=== PATIENT | female | born 1980 | race Caucasian/White ===

== ENCOUNTER 2017-08-04 14:00 | Observation (INO) | payer SELFPAY ==
[~2017-08-04 14:00] MED LIST: ISOVUE-370 76%-LOCM 1 ML ONE; Iopamidol 370 76% 50 ML VIAL FS ONE
[2017-08-04] MEDS ORDERED: Ondansetron ODT 4 MG TAB ONE ×2 (14:32→18:26)
[2017-08-04 14:40] LABS: #Lymphocytes 0.6 thou/uL (1.20-3.40); #Monocytes 0.3 thou/uL (0.11-0.59); #Neutrophils 4.6 thou/uL (1.40-6.50); %Basophils 0.5 % (0.0-1.0); %Eosinophils 0.1 % (0.0-10.0); %Lymphocytes 11.2 % (21.0-51.0); %Monocytes 5.5 % (0.0-10.0); %Neutrophils 82.6 % (42.0-75.0); Hemoglobin 12.1 g/dL (12.0-16.0); Mean Corpuscular HGB CONC 34.3 g/dL (32.0-36.0); Mean Corpuscular Volume 99.2 fl (81.0-99.0); Mean Platelet Volume 7.6 fL (7.4-10.4); Platelet Count 186 thou/uL (130-400); RBC Distribution Width 14.5 % (11.5-14.5); Red Blood Cell (RBC) Count 3.58 mill/uL (4.20-5.40); White Blood Cell (WBC) Count 5.6 thou/uL (4.8-10.8)
[2017-08-04 14:52] LABS: Bilirubin Negative (Negative); Blood, Urine Negative (Negative); Clarity CLOUDY (Clear); Glucose, Urine (Dipstick) Negative (Negative); Leukocyte Small (Negative); Nitrite Positive (Negative); Protein, Urine (Dipstick) Negative (Neg-Trace); Specific Gravity, Urine 1.012 (1.002-1.036); Urobilinogen 0.2 mg/dL (0.2-1.0); pH, Urine 7.5 (5.0-9.0)
[2017-08-04 14:53] LABS: Pregnancy Test - Urine (BHCG) Negative (Negative); Pregu Control Background? CLEAR/WHITE (CLR/WHITE); Pregu Control Bar Appear? YES (CONTROL BAR); Specific Gravity 1.012 (1.002-1.036)
[2017-08-04 14:57] LABS: ALT (SGPT) 100 U/L (8-55); AST (SGOT) 210 U/L (5-34); Albumin 4.4 g/dL (3.5-5.0); Alkaline Phosphatase 289 U/L (40-150); Anion Gap 15 mmol/L (10-20); BUN (Urea Nitrogen) 6 mg/dL (7.0-18.7); Bilirubin, Total 0.5 mg/dL (0.2-1.2); Calc. Creatinine Clearance 0 mL/min (70-130); Calcium 10.1 mg/dL (7.8-10.44); Carbon Dioxide 28 mmol/L (22-29); Chloride 98 mmol/L (98-107); Estimated GFR-MDRD 81; Globulin 3.5 g/dL (2.4-3.5); Glucose 116 mg/dL (70-105); Potassium 3.7 mmol/L (3.5-5.1); Protein, Total 7.9 g/dL (6.0-8.3); Sodium 137 mmol/L (136-145)
[2017-08-04 14:57] LABS: Bacteria/HPF 4+ HPF (None Seen); Hyaline Casts/LPF 0-3 HYALINE CAST LPF (0-3 Hyaline); Pathc Cast-AUWi Flag 0.29 (0-2.49); RBC/HPF 0-3 HPF (0-3)
[2017-08-04] MEDS ORDERED: Piperacillin/Tazobactam 3.375 GM VIAL ONE (16:05)
[2017-08-04] MEDS ORDERED: Morphine 4 MG/ML VIAL ONE (16:05)
[2017-08-04 16:32] LABS: HBSAg Index 0.21 S/CO (0-0.99); Hep B Surf Ag Non-Reactive S/CO (NonReactive)
[2017-08-04 16:33] LABS: Hep C IgG Ab Non-Reactive (NonReactive); Hep C Index 0.17 S/CO (0-0.79)
--- NOTE | 2017-08-04 17:29 | ULT ---
RIGHT UPPER QUADRANT ULTRASOUND: HISTORY: A 37-year-old male with abdominal pain and nausea, vomiting, and diarrhea. FINDINGS: The liver shows some increased echogenicity, consistent with fatty change. No evidence of gallstones , wall thickening, edema, or pericholecystic fluid. The common bile duct is minimally dilated, up to 0.8 cm, without significant intrahepatic ductal dilatation. The pancreas is mostly obscured. The r ight kidney is unremarkable. IMPRESSION: Minimally dilated common bile duct, up to 0.8 cm, without intrahepatic ductal dilatation. No evidenc e of gallstones. Fatty liver. POS: [facility]
[2017-08-04] MEDS ORDERED: Lactated Ringer's 1,000 ML IV SCH (20:00)
--- NOTE | 2017-08-04 20:29 | CT ---
ABDOMEN AND PELVIS CT SCAN WITH IV CONTRAST: HISTORY: A 37-year-old female with a history of abdominal pain and common bile duct dilatation. Nausea, vomit ing, and diarrhea. FINDINGS: The lung bases are clear. Fatty changes in the liver. The gallbladder appears unremarkable. The co mmon bile duct is mildly dilated at 0.8 cm but no intrahepatic ductal dilatation. The pancreas appea rs normal, as does the spleen and adrenal glands. No renal calculus or acute obstruction. Normal appearing appendix. There are some minimally dilated loops of small bowel in the anterior upper abd omen, probably jejunum, nonspecific, possibly related to some focal ileus or mild low grade partial s mall bowel obstruction. There is some focal colonic wall thickening in the upper right colon, extend ing into the hepatic flexure, with a normal appearing cecum and transverse colon. This is concerning for nonspecific focal colitis. Unremarkable uterus and adnexa. Pedicle screws stabilize L5-S1. IMPRESSION: 1. Focal colonic wall thickening involving the upper right colon, extending to the hepatic flexure, evidence for nonspecific focal colitis. 2. Several loops of minimally abnormally dilated small bowel in the anterior upper abdomen, probable representing jejunum or proximal small bowel, nonspecific, possibly some focal ileus or mild low gra de partial small bowel obstruction. 3. Fatty changes in the liver. 4. Minimally dilated common bile duct without intrahepatic ductal dilatation. 5. No other significant acute process. POS: [facility]
[2017-08-04] MEDS ORDERED: Morphine 4 MG/ML VIAL SLOW IVP PRN (21:07)
[2017-08-04] MEDS: Ondansetron ODT 8 MG TAB PO PRN (21:34)
[2017-08-04] MEDS: Lactated Ringer's 1,000 ML IV SCH (23:57)
[2017-08-04] MEDS: Acetaminophen 1,000 MG in Premix Bag 1 BAG IVPB SCH (23:59)
[2017-08-04] MEDS: Ketorolac Tromethamine 30 MG/ML VIAL IVP SCH (23:59)
[2017-08-05 02:04] VITALS: BMI 27.2
[2017-08-05] MEDS: Ondansetron ODT 8 MG TAB PO PRN ×4 (02:41→20:29)
[2017-08-05] MEDS: Acetaminophen 1,000 MG in Premix Bag 1 BAG IVPB SCH ×3 (05:28→18:26)
[2017-08-05] MEDS: Ketorolac Tromethamine 30 MG/ML VIAL IVP SCH ×2 (05:28→12:22)
[2017-08-05] MEDS: Lactated Ringer's 1,000 ML IV SCH ×2 (05:28→18:26)
[2017-08-05] MEDS: Pantoprazole 40 MG VIAL IVP SCH ×2 (08:39→20:15)
--- NOTE | 2017-08-05 09:09 | HP ---
HISTORY OF PRESENT ILLNESS: Esha Hanson is a 37-year-old female who has recently moved [facility] from [place] and prior to that was out of state. The patient has had problems with narcotic use and has been on methadone in the past 6 months. Her goal is to be weaned off of methadone. She has recently been seen by a chronic pain management physician on [facility]. [place] cannot remember his name. She is on methadone wafers routinely. The patient has gained 100 pounds in the last year, she thinks related to the methadone wafers. She hopes again to be off the methado ne soon. The patient presents with nausea, vomiting, diarrhea, abdominal pain, right abdomen, right upper quadrant for the last week. She developed severe dehydration and the shakes and presented to [facility] emergency room. She was evaluated there with an ultrasound of the gallbladder as she is slightly tender in her right upper quadrant. This revealed a common bile duct 8 mm, normal gallbladder withou t stones. Liver function tests were normal. The patient had a fatty liver. There was no intrahepat ic ductal dilatation. It was communicated to me by the ER physician, Dr. Ardon that the patient had choledocholithiasis, although her liver function tests were normal. Based on that discussion she un derwent a CAT scan of the abdomen and pelvis revealing a normal gallbladder, fatty liver, a thickened right colon and transverse colon, several loops of minimally dilated small bowel loops in the upper abdomen. No other acute process. The patient has had problems with intermittent bloating, belching, right upper quadrant pain and a HI DA scan ejection fraction is ordered this morning and pending. The patient has had past history of peptic ulcer disease related to NSAIDs and has had upper endoscop ies and had been told to avoid NSAIDs. The patient has had problems with abdominal pain. She has had colonoscopies in the past, probably last 10 years ago. She reports that as a baseline she has 1-3 loose stools a day alternating with constipation. She believes a lot of her weight gain and GI problems are related to her methadone use . She has recently moved here under the employment of a [employer] company. ALLERGIES: None. TOBACCO: 1/2 pack per day, none the last 2 weeks. ALCOHOL: Occasionally, rarely. PAST SURGICAL HISTORY: Two lumbar surgeries resulting in a fusion L5-S1. Pilonidal cyst resection. Laparoscopy for endometriosis. PAST MEDICAL HISTORY: History of GI bleed related to NSAIDs. History of methadone use of the [facility] ent for her narcotic use related to her prior lumbar surgery and pilonidal cyst resection. As stated above, she has gained 100 pounds over the last year and is concerned about this. She would like to quit smoking. Would like to lose weight. ALLERGIES: LATEX, NATURAL RUBBER. REVIEW OF SYSTEMS: [place] otherwise noncontributory. PHYSICAL EXAMINATION: VITAL SIGNS: Height 5 foot 7, 174 pounds, 27 BMI, 97.8 degrees, 56, 18, 137/69. HEENT: Unremarkable. Sclerae are nonicteric. LUNGS: Clear to auscultation. CARDIAC: Regular rate and rhythm without murmur or gallop. ABDOMEN: Slightly tender in right upper quadrant, right lateral abdomen and upper abdomen with mild voluntary guarding, but no peritoneal signs. SKIN: Nonjaundiced. EXTREMITIES: Unremarkable. No ankle edema. NEUROLOGIC: Intact. No focal deficits. LABORATORY: White count 5, hemoglobin 12, sodium 137, potassium 3.7, BUN 6, creatinine 0.79. Liver function tests normal except for AST and ALT 210/100 respectively, alkaline phosphatase 289. ASSESSMENT AND PLAN: 1. Abdominal pain. I doubt that she has any significant acute biliary disease, but due to her past history of epigastric right upper quadrant pain, postprandial bloating and past history of liver func tion test elevation intermittently, we will obtain a HIDA scan with ejection fraction. 2. Chronic gastrointestinal complaints, she thinks may be related to the methadone. We will obtain Gastroenterology consultation. She may need upper and lower endoscopy. Her upper abdominal pain cou ld be related to colitis or acute gastroenteritis or peptic ulcer disease. We will begin proton-pump inhibitors, avoid oral NSAIDs and await GI consultation. 3. Past history of liver function test elevations intermittently. She states this was checked in [place], was elevated, rechecked and it was improved and now her AST, ALT and alkaline phosphatase are elevated. Hepatitis serology is pending. Nonreactive hepatitis B surface antigen, nonreactive hepa titis C antibody pending hepatitis A IgM antibody and hepatitis B core IgM antibody. 4. Chronic methadone use.
[2017-08-05] MEDS ORDERED: Lorazepam 2 MG/ML VIAL SLOW IVP SCH (10:15)
--- NOTE | 2017-08-05 11:00 | ADD-HP ---
ADDENDUM ASSESSMENT: Dehydration. Urine bacteria 4+, nitrite positive, urine test negative. Speci fic gravity urine 10-12 on admission. She has a urinary tract infection. PLAN: 1. Intravenous antibiotics. 2. Dehydration, improved with hydration, her shakiness has improved.
--- NOTE | 2017-08-05 13:42 | NM ---
HEPATOBILIARY STUDY: Date: 08/05/17 HISTORY: Choledocholithiasis. RADIOPHARMACEUTICAL: 4.9 mCi technetium-99m mebrofenin, IV. MEDICATIONS: 1.6 mcg CCK analog, IV infused over 30 minutes. FINDINGS: There is prompt uptake and excretion of radiotracer by the liver. Gallbladder activity is faintly vis ualized at 6 minutes with increasing activity in the gallbladder imaging up to 60 minutes. Bowel acti vity is visualized by 56 minutes. After 60 minutes of imaging, CCK analog was infused intravenously o natalia 30 minutes. A gallbladder ejection fraction of 90% was obtained, which is within normal limits. IMPRESSION: 1. No evidence of a cystic or common duct obstruction. 2. Normal gallbladder ejection fraction. POS: [facility]
[2017-08-05] MEDS ORDERED: GoLYTELY 4,000 ml Bottle PO SCH (15:45)
[2017-08-05] MEDS ORDERED: hydrOXYzine 25 MG TAB PO PRN (17:18)
[2017-08-06] MEDS: Lactated Ringer's 1,000 ML IV SCH ×2 (00:19→11:20)
[2017-08-06] MEDS: Acetaminophen 1,000 MG in Premix Bag 1 BAG IVPB SCH (00:19)
--- NOTE | 2017-08-06 00:48 | CON ---
DATE OF CONSULTATION: 08/05/2017 GASTROENTEROLOGY CONSULTATION CHIEF COMPLAINT: Abdominal pain, diarrhea. HISTORY OF PRESENT ILLNESS: Ms. Hanson is a 37-year-old woman who has had worsening flare of right u pper quadrant, sharp, stabbing pain and epigastric burning pain over the last 1 to 2 weeks. The pain radiates through to her back and has been worse after fatty foods. She has had a decrease in her ap petite associated with this. She has been having diarrhea with up to 12 watery nonbloody stools per day. She has had some shaking and anxiety and headaches. She reports bruising easily. These sympto ms have been going on since March. She has been on methadone to try to wean off of other chronic opioid addiction. In 2006, she had an upper GI bleed with gastric ulcer. This was attributed to NSA ID then. She still takes NSAIDs around 3 times per week for headaches. She had a colonoscopy in , which was reportedly normal. She has gained 100 pounds over the last year. PAST MEDICAL HISTORY: Hypertension, hyperlipidemia, peptic ulcer disease. PAST SURGICAL HISTORY: L4-S1 fusion, pilonidal cyst surgery, laparoscopic endometriosis surgery. FAMILY HISTORY: Negative for GI malignancy. Her father had cirrhosis secondary to alcohol. SOCIAL HISTORY: She smokes a pack per day. She reports alcohol, a couple of drinks on the weekends and one during the week recently, but she has gone through periods where she had heavy binge drinking for shorter periods. She has a history of cocaine and OxyContin abuse, which she quit 2 years ago. ALLERGIES: LATEX. MEDICATIONS: Prior to admission, methadone, lisinopril with hydrochlorothiazide, Restoril. REVIEW OF SYSTEMS: Negative x10 systems reviewed except as stated in the history of present illness. PHYSICAL EXAMINATION: VITAL SIGNS: Temperature 99.2, pulse 74, blood pressure 146/80. GENERAL: She is in no acute distress, alert and oriented x3. HEENT: Eyes have no scleral icterus. Oropharynx is clear, without lesions. NECK: No cervical or supraclavicular lymphadenopathy. LUNGS: Clear to auscultation bilaterally. HEART: Regular rate and rhythm without murmur. ABDOMEN: Soft. She has tenderness in the right upper quadrant without guarding in the epigastric re gion. She is nontender in the left abdomen. Bowel sounds are present. EXTREMITIES: No lower extremity edema. NEUROLOGIC: Cranial nerves are grossly intact. LABORATORY DATA: White blood cell count 5.6, hemoglobin 12.1, platelets 186. Creatinine 0.79, calci um 10.1, iron 254, bilirubin 0.5, AST 210, ALT 100, alkaline phosphatase 289, albumin 4.4 and hepatit is A IgM is pending. Hepatitis B core IgM is pending. Hepatitis B surface antigen is negative. Hep atitis C antibody is negative. IMPRESSION: 1. Intermittent right upper quadrant epigastric pain for months; however, worsening flare over the l ast couple weeks associated with diarrhea up to 12 stools per day[address] A CT scan of the abdomen and pelv is was performed, which showed thickening of the right colon and hepatic flexure. Her symptoms corre spond to the abnormality on the CT scan regarding the location of the pain and abnormalities and the thickening of the colon. We should rule out infectious colitis; however, symptoms seem longer term a nd making this less likely, rule out inflammatory bowel disease; however, this does not seem likely g iven 100-pound weight gain over the last year. Ischemic colitis is possible with right upper quadran t pain and thickening in the colon on CT. We would want to rule out cocaine or methamphetamine use a s a possible source for that. 2. Abnormal liver function tests. The transaminases are elevated in the 200 to 100 range. The kamila line phosphatase is elevated at 289. Viral hepatitis labs are negative for B surface antigen; howeve r, the B core IgM is pending and the hepatitis A IgM is pending. We will rule out autoimmune liver d isease and check for other causes of liver disease as well. She could have flare of nonalcoholic fat ty liver disease considering the 100-pound weight gain. There has also been some history of heavier alcohol use previously as well. 3. History of polysubstance abuse. Diarrhea and abdominal pain and shaking and anxiety could be rel ated to discontinuation of opioids. However, lately she has been on chronic methadone use and this d oes not seem to be a likely source of her acute symptoms. RECOMMENDATIONS: 1. Await the viral hepatitis screen. 2. We will check autoimmune markers and iron saturation, alpha 1 antitrypsin level, ceruloplasmin to complete liver workup. 3. Both labs were negative and CMV could be considered as well. 4. HCMV, above. 5. Check stool studies. 6. Avoid NSAIDs. PLAN: EGD to rule out peptic ulcer disease in light of the history of peptic ulcer disease and ongoi ng NSAID use. Also, we will perform colonoscopy to evaluate the diarrhea and abnormal colon thickeni ng within the right colon.
[2017-08-06 05:22] LABS: INR-International Normal Ratio 1.2; Prothrombin Time 15.3 SEC (12.0-14.7)
[2017-08-06] MEDS: Ondansetron ODT 8 MG TAB PO PRN (05:54)
[2017-08-06 07:02] LABS: Medtox Reader # READER 1
[2017-08-06 07:03] LABS: Amphetamine Not Detected (NotDetected); Barbiturates Screen Not Detected (NotDetected); Benzodiazepine Screen Detected (NotDetected); Cocaine Metabolite Screen Not Detected (NotDetected); Medtox Control Line Valid? VALID (VALID); Methadone Detected (NotDetected); Methamphetamine Not Detected (NotDetected); Opiate Screen Not Detected (NotDetected); Oxycodone Screen Not Detected (NotDetected); Phencyclidine (PCP) Not Detected (NotDetected); THC/Cannabinoid Screen Not Detected (NotDetected); Tricyclic Screen Not Detected (NotDetected)
[2017-08-06] MEDS: Pantoprazole 40 MG VIAL IVP SCH (08:29)
[2017-08-06 08:58] VITALS: BP 155/92; TEMP 98.2
[2017-08-06] MEDS ORDERED: METHADONE HCL PO SCH (09:00)
[2017-08-06] MEDS ORDERED: METHadone HCl 10 MG TAB PO SCH (09:00)
[2017-08-06] MEDS ORDERED: Acetaminophen 500 MG TAB PO SCH (09:00)
[2017-08-06 12:42] LABS: EliA Vaculitis New Method **** NEW METHOD ****; Mitochondrial Ab 0.5 U/mL (<4 Negative)
[2017-08-06 12:58] LABS: EliA Celiac New Method **** NEW METHOD ****; t-Transglutaminase (tTG) IgA 0.9 EliAU/mL (<7 Negative)
[2017-08-06] MEDS ORDERED: Midazolam HCl 2 mg/2 ml Vial ONE (13:01)
[2017-08-06] MEDS ORDERED: Lidocaine 1% PF 5 ML VIAL ONE (13:49)
[2017-08-06] MEDS ORDERED: PROPOFOL 200 MG/20 ML VIAL ONE (13:49)
[2017-08-06] MEDS ORDERED: Acetaminophen 500 MG TAB PO PRN (15:00)
[2017-08-06] MEDS ORDERED: Acetaminophen 1,000 MG in Premix Bag 1 BAG IVPB PRN (15:00)
--- NOTE | 2017-08-06 15:15 | PRG ---
DATE OF SERVICE: 08/06/2017 SUBJECTIVE: Esha Hanson is doing well today. She had an EGD and colonoscopy. Dr. Harris perform ed this. She had a duodenal ulcer. She has been given Protonix to go home 40 mg a day for 2 months with 4 refills. She was given Zofran 4 mg ODT to go home with #23 refills. Her serology is hepatiti s A and B core pending. Hepatitis B surface antigen and C antibody are negative. Antimitochondrial antibody and celiac disease interpretation is pending. OBJECTIVE: LUNGS: Clear to auscultation. CARDIAC: Regular rate and rhythm without murmur, rub, or gallop. ABDOMEN: Soft and nontender. ASSESSMENT AND PLAN: Peptic ulcer disease. Avoid non-steroidal antinflammatory disease. Plan to di scharge home today on PPIs. Resume her methadone. Follow up with Gastroenterology, Dr. Jacobs, in next 2 weeks.
[2017-08-06 15:23] LABS: HBCM Index 0.11 S/CO (0-0.79); Hep A IgM AB Non-Reactive (NonReactive); Hep A IgM S/CO 0.18 S/CO (0-0.79); Hepatitis B Core IGM Abs Non-Reactive (NonReactive)
[2017-08-06] MEDS ORDERED: cefTRIAXone\\ROCEPHIN 2 GM in Sodium Chloride 0.9% 100 ML IVPB SCH (16:00)
--- NOTE | 2017-08-06 20:23 | OP ---
DATE OF PROCEDURE: 08/06/2017 PREPROCEDURE DIAGNOSES: 1. CAT scan questioning right colon thickening. 2. Diarrheal illness. 3. Left upper quadrant pain, history of prior ulcers in the past. POSTPROCEDURE DIAGNOSES: 1. Gastric ulcer, white base, deep 1 cm at the 10 o'clock position in relation to the pyloric channe l. Multiple biopsies obtained around and at the margin of the ulcer. 2. Otherwise, normal esophagogastroduodenoscopy. 3. Colonoscopy with linear scarring in antimesenteric border in the region of the splenic flexure co nsistent with previous ischemic colitis. Biopsies obtained. 4. Otherwise, normal colonoscopy and terminal ileum. RECOMMENDATIONS: 1. Await biopsies. 2. Avoid NSAIDs. 3. PPI. ANESTHESIA: TIVA. PROCEDURE IN DETAIL: The patient was informed of the risks, benefits, possible complications of endo scopy including perforation, bleeding, reactions to medication and aspiration, informed consent was o btained. The patient was brought to the operative suite, where she was sedated in gradual fashion. Once she was comfortable, a bite block was placed in incisural orifice and the endoscope was advanced through the esophagus, stomach, second and third portions of the duodenum and slowly removed. The e sophagus and stomach proximally were normal. The GE junction was normal in forward and retroflexed v iews. The antrum with some mild erythema at the 10 o'clock position. In relation to the pylorus, th ere is a 1 cm white-based deep ulcer. Biopsies were taken from the margin. No other gastric lesions were seen. The duodenal bulb was entered and found to be normal as was the duodenum, second and thi rd portion. The scope was removed. The patient was turned in the room and a rectal examination was performed. The endoscope was advance d through the anal canal to the colon to the terminal ileum and cecum. The ileum was normal. Cecum was normal. The scope inserted and brought back. There is no evidence of inflammation or erythema i n the ascending colon or sigmoid or hepatic flexure. In the splenic flexure, there was an area of wh ite linear scar well healed, consistent with the appearance of healed ischemic colitis. Biopsies wer e obtained. The sigmoid colon and rectum were normal. The scope was removed. The patient tolerated the procedure well, no complications.
[2017-08-06] MEDS ORDERED: Sulfameth/Trimethoprim DS 800-160mg TAB PO SCH (21:00)
--- NOTE | 2017-08-06 23:34 | DIS ---
DATE OF ADMISSION: 08/05/2017 DATE OF DISCHARGE: 08/06/2017 DISCHARGE DIAGNOSES: Abdominal pain, peptic ulcer disease, urinary tract infection, Escherichia. col i, resistant to quinolones, sensitive to Bactrim. Stool studies performed, parasite screen negative. Stool lactoferrin absence negative. Clostridium difficile, antigen, toxin negative. Campylobacter negative. Stool culture normal jil. DISCHARGE MEDICATIONS: Resume methadone 90 mg a day, lisinopril daily, Tylenol p.r.n., prescription for Bactrim-DS one p.o. b.i.d. for 7 days, Zofran 4 mg ODT q.i.d. p.r.n. nausea, #24 refills, Protoni x 40 mg a day for 2 months three refills. Follow up with Dr. Catarino Jacobs. HISTORY: A 37-year-old female with history of chronic back pain, narcotic addiction undergoing metha done treatment, history of abdominal pain seen in the emergency room with an 8-mm bile duct on ultras ound reported to me as having choledocholithiasis with normal liver function test. Normal bilirubin. Alkaline phosphatase, AST, ALT were elevated. The patient was admitted. Ultrasound did not show a ny gallstones. CAT scan obtained reveals thickening of the right colon. She has had a colonoscopy a few years prior. Gastroenterology consultation obtained revealing the above studies. Other serolog ical studies are pending. She is seen by Dr. Jacobs. Dr. Harris performed upper and lower endoscopy, documented duodenal ulcer. She is sent home with PPIs. She had an E. coli urinary tract infection treated with Levaquin in the hospital. Cultures today revealed insisted that she will be sent home w kathy Woods. Follow up with GI for completion studies. Avoid NSAIDs.
[2017-08-08 16:14] LABS: Smooth Muscle Total ABS 9 Units (0-19)
[2017-08-09 15:25] LABS: Alpha-1-Antitrypsin 134 mg/dL (90-200)
== END 2017-08-06 18:45 | disposition home or self-care (01) ==
LOC: ERS 14:00 → SURG A 19:01
PROVIDERS: ADMIT Specialist; ATTEND Specialist
PROC: 0DBL8ZX Excision of Transverse Colon, Via Natural or Artificial Opening Endoscopic, Diagnostic (ICD-10-PCS; principal; 2017-08-06)
PROC: 0DB78ZX Excision of Stomach, Pylorus, Via Natural or Artificial Opening Endoscopic, Diagnostic (ICD-10-PCS; 2017-08-06)
DX: K25.9 Gastric ulcer, unspecified as acute or chronic, without hemorrhage or perforation (principal); N39.0 Urinary tract infection, site not specified; B96.20 Unspecified Escherichia coli [E. coli] as the cause of diseases classified elsewhere; F11.21 Opioid dependence, in remission; R19.7 Diarrhea, unspecified; I10 Essential (primary) hypertension; E78.5 Hyperlipidemia, unspecified; F17.210 Nicotine dependence, cigarettes, uncomplicated; E86.0 Dehydration; K76.0 Fatty (change of) liver, not elsewhere classified; Z79.899 Other long term (current) drug therapy; Z91.040 Latex allergy status
CPT/HCPCS: 36415; 74177; 76705; 78227; 80053; 80074; 80306; 81003; 81015; 81025; 82103; 82104; 83516; 83540; 83550; 83630; 85025; 85610; 87045; 87046; 87077; 87086; 87186; 87324; 87328; 87329; 87449; 87899; 88305; 88312; 96361; 96365; 96367; 96375; 96376; A4216; A9537; C9113; G0378; J0131; J0696; J1885; J1956; J2001; J2060; J2250; J2270; J2543; J2704; J7050; Q0162